=== PATIENT | female | born 2000 | race Two or more races ===

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

== ENCOUNTER 2021-02-05 10:07 | Emergency (ER) | payer OTHER ==
[~2021-02-05] VITALS: Ht 165.1 cm; Wt 67.4 kg
[2021-02-05] MEDS ORDERED: KETOROLAC 30 MG/ML 1ML VIAL IV ONE (10:45)
--- NOTE | 2021-02-05 10:45 | REP ---
INDICATION: sob. COMPARISON: None. TECHNIQUE: Sitting AP portable chest x-ray. FINDINGS: The lungs are well inflated and clear. The pleural angles are sharp. Heart size is normal. Pulmonary vasculature is not increased. No bony abnormality is seen. IMPRESSION: Negative portable chest x-ray. <Electronically signed by Renzo Motta > 02/05/21 [id number]
[2021-02-05] MEDS ORDERED: ISOVUE-370 76% 100ML VIAL As Ordered ONE (11:20)
--- NOTE | 2021-02-05 12:03 | REP ---
INDICATION: pleuritic CP r/o PE. COMPARISON: Comparison is made with today's chest x-ray.. TECHNIQUE: Contrast dose: 75 ML of Isovue [address] technique: Helical scanning is acquired and overlapping 1.5 mm and contiguous 3 mm axial images are reformatted. In addition, maximum intensity projection and multiplanar re-formation images are generated in sagittal and coronal imaging projections. FINDINGS: There is good opacification in the pulmonary arterial tree. There is no evidence of vessel cut off or filling defect to suggest pulmonary embolus. Homogeneous opacity is seen in the thoracic aorta. There is no evidence of aneurysm or dissection. Lung window settings demonstrate a subtle infiltrate in the left lower lobe consistent with pneumonia. Lung aguilar are otherwise clear. There is no evidence of pleural effusion or pericardial effusion. No hilar or mediastinal mass or adenopathy is observed. In the upper abdomen, normal adrenal glands are seen. There are 2 small focal hypervascular foci in the liver consistent with small hemangiomas. There is an area of fatty infiltration of the liver in the left lobe. The visualized upper abdominal structures are otherwise unremarkable. There are 2 small accessory splenules. IMPRESSION: No CT evidence of pulmonary embolus. Left lower lobe pneumonia. Small hepatic hemangiomas. <Electronically signed by Renzo Motta > 02/05/21 [id number]
[2021-02-05] MEDS ORDERED: AMOX500T PO (12:17)
[2021-02-05] MEDS ORDERED: KETO10TAB PO (12:18)
[2021-02-05 12:38] VITALS: BP 126/65
--- NOTE | 2021-02-07 16:30 | ECGEPIP ---
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
== END 2021-02-05 12:51 | disposition home or self-care (01) ==
LOC: M ED 10:07
DX: J18.9 Pneumonia, unspecified organism (principal); Z77.098 Contact with and (suspected) exposure to other hazardous, chiefly nonmedicinal, chemicals; F12.20 Cannabis dependence, uncomplicated
CPT/HCPCS: 71045; 71275; 84702; 93005; 96374; 99284; J1885; Q9967

== ENCOUNTER → 2021-09-29 | Outpatient (REF) | payer OTHER ==
[~2021-09-29] MED LIST: AMOX500T PO; KETO10TAB PO
[2021-09-29 16:21] LABS: HEMATOCRIT 41.1 % (36.0-47.0); HEMOGLOBIN 14.2 g/dl (12.0-15.5); MEAN CORPUSCULAR HEMOGLOBIN 26.8 pg (27.0-33.0); MEAN CORPUSCULAR HGB CONC 34.5 g/dl (32.0-36.5); MEAN CORPUSCULAR VOLUME 77.7 fl (80.0-96.0); PLATELET COUNT, AUTOMATED 283 10^3/uL (150-450); RED BLOOD COUNT 5.29 10^6/uL (4.00-5.40); WHITE BLOOD COUNT 5.4 10^3/uL (4.0-10.0)
[2021-09-29 16:58] LABS: BLOOD UREA NITROGEN 8 MG/DL (7-18); CALCIUM LEVEL 9.2 MG/DL (8.5-10.1); CARBON DIOXIDE LEVEL 28 MEQ/L (21-32); CHLORIDE LEVEL 108 MEQ/L (98-107); CREATININE FOR GFR 0.88 MG/DL (0.55-1.30); FREE T4 1.13 NG/DL (0.78-1.33); GLUCOSE, FASTING 86 MG/DL (70-100); POTASSIUM SERUM 4.5 MEQ/L (3.5-5.1); SODIUM LEVEL 139 MEQ/L (136-145)
== END ==
LOC: M SFHCCLAY 10:36
PROVIDERS: ATTEND Family Medicine
DX: F90.9 Attention-deficit hyperactivity disorder, unspecified type (principal); F41.9 Anxiety disorder, unspecified; F32.A Depression, unspecified